=== PATIENT | female | born 1970 | race Two or more races ===

== ENCOUNTER 2016-06-04 07:50 | Emergency (ER) | payer OTHER, MEDICAID ==
[~2016-06-04] VITALS: Ht 180.3 cm; Wt 86.2 kg
[2016-06-04 08:36] VITALS: BP 157/100
== END 2016-06-04 09:06 | disposition home or self-care (01) ==
LOC: ER 07:54
DX: J20.9 Acute bronchitis, unspecified (principal); R06.2 Wheezing